=== PATIENT | male | born 1945 | race Caucasian/White ===

== ENCOUNTER → 2017-08-24 | Outpatient (CLI) | payer MEDICARE, OTHER ==
[~2017-08-24] MED LIST: ASPI-1471 PO; ATR10 PO; PREVASTATIN PO; PRILOSEC PO; VITA1CAP46 PO
--- NOTE | 2017-08-24 15:07 | RADIOLOGY IMAGING REPORT ---
FACILITY: [facility] - [place] PATIENT NAME: Isaias Gonzalez : 1945 MR: [id number] V: [id number] EXAM DATE: ORDERING PHYSICIAN: ANGELA CARNES TECHNOLOGIST: Location: [facility] - [place] Patient: Isaias Gonzalez : 1945 Visit/Account:[id number] Date of Sevice: 08/24/2017 Exam type: ORBITS FOREIGN BODY 1 VIEW History: Pre-MRI screening Comparison: None. Findings: No radiopaque metallic foreign bodies project over the orbits IMPRESSION: 1. No radiopaque metallic foreign bodies project over the orbits Report Dictated By: Lolita Zimmerman MD at 08/24/2017 3:02 PM Report E-Signed By: Lolita Zimmerman MD at 08/24/2017 3:03 PM [id number]
--- NOTE | 2017-08-24 16:10 | RADIOLOGY IMAGING REPORT ---
FACILITY: [facility] PATIENT NAME: Isaias Gonzalez : 1945 MR: [id number] V: [id number] EXAM DATE: ORDERING PHYSICIAN: ANGELA CARNES TECHNOLOGIST: Location: [facility] [place] Patient: Isaias Gonzalez : 1945 Visit/Account:[id number] Date of Sevice: 08/24/2017 L SPINE W/O CONTRAST COMPARISON: None Additional pertinent history: Right hip pain with low back pain Technique: Multiplanar multisequence lumbar spine MRI was performed without gadolinium enhancement. FINDINGS: Vertebral body heights and alignment: Grade 1 anterior listhesis of L4 on L5. Mild retrolisthesis of L1 on L2. Vertebral marrow signal: Type II degenerative endplate changes at multiple levels. Distal thoracic cord and conus: Negative. The conus ends at T12-L1. Surrounding soft tissues: Negative. Inspection of the disc spaces reveal the following: L5-S1: Posterior broad-based disc protrusion with facet hypertrophic changes. Moderate bilateral carile ral foraminal narrowing with mild canal stenosis. L4-L5: Posterior broad-based disc protrusion with facet hypertrophic changes. Grade 1 anterior listh esis of L4 on L5. Severe bilateral neural foraminal narrowing with severe canal stenosis. L3-L4: Posterior broad-based disc protrusion with facet hypertrophic changes. Moderate bilateral carlie ral foraminal narrowing with moderate canal stenosis. L2-L3: Posterior broad-based disc protrusion with facet hypertrophic changes. Severe bilateral neura l foraminal narrowing with moderate canal stenosis. L1-L2: Retrolisthesis of L4 on L5. Posterior broad-based disc protrusion with facet hypertrophic reema nges. Severe bilateral neural foraminal narrowing with mild canal stenosis. T12-L1: Minimal circumferential disc bulging without significant canal or neural foraminal narrowing. IMPRESSION: 1. Multilevel spondylitic change as discussed above. 2. Findings felt to be potentially most significant at L4-L5 with severe canal stenosis and severe b ilateral neural foraminal narrowing. Report Dictated By: Yinka Fallon MD at 08/24/2017 4:02 PM Report E-Signed By: Yinka Fallon MD at 08/24/2017 4:06 PM WSN:[id number]
== END ==
LOC: MRI 07:04
PROVIDERS: ATTEND Family Medicine
DX: M47.896 Other spondylosis, lumbar region (principal); M48.061 Spinal stenosis, lumbar region without neurogenic claudication
CPT/HCPCS: 70030; 72148

== ENCOUNTER 2018-04-07 11:07 | Emergency (ER) | payer MEDICARE, OTHER ==
[2018-04-07 11:10] VITALS: BP 109/82
--- NOTE | 2018-04-07 11:28 | ER Report ---
History and Physical Time Seen By MD: 11:20 HPI/ROS CHIEF COMPLAINT: Right ankle pain HISTORY OF PRESENT ILLNESS: 72-year-old male was playing pickle ball and felt a pop in his right Achilles area while he was playing could not stand anymore went to the ground is unable to amply without severe discomfort no head or neck trauma no additional complaints noted pain is localized to the insertion of the Achilles tendon in the base of the right calf REVIEW OF SYSTEMS: Respiratory: No cough, no dyspnea. Cardiovascular: No chest pain, no palpitations. Gastrointestinal: No vomiting, no abdominal pain. Musculoskeletal: Right Achilles Tenderness Remainder of the 14 system rev: Yes Allergies: Coded Allergies: promethazine (Verified Adverse Reaction, Intermediate, MUSCLE SPASMS, 06/04/09) Home Meds Reported Medications Vitamin B Complex (VITAMIN B COMPLEX) 1 Each Capsule, 1 EACH PO QDAY, CAPSULE 10/06/14 Aspirin (ASPIR 81) 81 Mg Tablet.dr, 81 MG PO QDAY, TAB 10/06/14 [Prevastatin] No Conflict Check, 20 MG PO HS 10/06/14 Reviewed Nurses Notes: Yes Old Medical Records Reviewed: Yes Hx Smoking: Yes (QUIT 25 YEARS AGO) Smoking Status: Former Smoker Hx Alcohol Use: Yes Constitutional Vital Sign - Last 24 Hours 04/07/18 11:10 Temp 98.0 Pulse 76 Resp 20 B/P (MAP) 109/82 Pulse Ox 91 O2 Delivery Room Air Physical Exam General Appearance: The patient is alert, has no immediate need for airway protection and no current signs of toxicity. [ ] Eyes: Pupils equal and round no injection. Respiratory: Chest is non tender, lungs are clear to auscultation. Cardiac: regular rate and rhythm [ ] Gastrointestinal: Abdomen is soft and non tender, no masses, bowel sounds normal. Musculoskeletal: Right ankle examination negative pain to palpation of the lateral medial malleolus of the base of the 5th metatarsal patient does have a positive Llanos test indicating a probable tendon Achilles rupture neurovascular intact otherwise unremarkable Neck is supple and non tender. Has decreased dictated above Skin: No rashes or lesions. [ ] DIFFERENTIAL DIAGNOSIS: After history and physical exam differential diagnosis was considered for Achilles rupture Medical Decision Making ED Course/Re-evaluation ED Course 80, Zocor 72-year-old male who has a positive Llanos test and x-ray showing no focal fractures or dislocations or subluxations consistent with a IA Achilles tendon rupture patient put in a cam walking boot with a 2 inch rise ambulation with crutches nonweightbearing and following up in 2 days with orthopedics Decision to Disposition Date: Apr 07, 2018 Decision to Disposition Time: 12:15 Depart Departure Latest Vital Signs Vital Signs Date Time Temp Pulse Resp B/P (MAP) Pulse Ox O2 Delivery O2 Flow Rate FiO2 04/07/18 11:10 98.0 76 20 109/82 91 Room Air Impression: Primary Impression: Achilles tendon rupture Condition: Stable Disposition: HOME OR SELF-CARE Referrals: ANGELA CARNES MD (PCP) Patient Instructions: Achilles Tendon Rupture (ED) SIMONE BRAVO MD Apr 07, 2018 11:28
--- NOTE | 2018-04-07 11:58 | RADIOLOGY IMAGING REPORT ---
FACILITY: [facility] PATIENT NAME: Isaias Gonzalez : 1945 MR: [id number] V: [id number] EXAM DATE: ORDERING PHYSICIAN: SIMONE BRAVO TECHNOLOGIST: Location: [facility] - [place] Patient: Isaias Gonzalez : 1945 Visit/Account:[id number] Date of Sevice: 04/07/2018 Technique: ANKLE 2 VIEW RIGHT HISTORY: trauma Comparison studies: None FINDINGS: There is no acute fracture. The ankle mortise is maintained. No ankle joint effusion. IMPRESSION: 1. No acute osseous process. Report Dictated By: Fran La DO at 04/07/2018 11:52 AM Report E-Signed By: Fran La DO at 04/07/2018 11:53 AM WSN:[id number]
== END 2018-04-07 13:11 | disposition home or self-care (01) ==
LOC: ER 11:23
DX: S86.011A Strain of right Achilles tendon, initial encounter (principal); Y93.73 Activity, racquet and hand sports
CPT/HCPCS: 99283